=== PATIENT | male | born 1985 | race African-American/Black ===

== ENCOUNTER → 2023-09-07 | Emergency (ER) | payer MEDICAID ==
[~2023-09-07] VITALS: Ht 172.7 cm; Wt 77.3 kg
[2023-09-07 11:43] VITALS: BP 129/77; PULSE 72; RESP 18; TEMP 98; O2SAT 98
== END ==
LOC: ER 11:25
DX: Z01.84 Encounter for antibody response examination (principal); Z53.21 Procedure and treatment not carried out due to patient leaving prior to being seen by health care provider